=== PATIENT | male | born 1995 | race American Indian/Alaskan Native ===

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

== ENCOUNTER 2020-10-19 05:30 | Emergency (ER) | payer MEDICAID, OTHER ==
--- NOTE | 2020-10-19 05:38 | Event Note ---
ED Screening Note Date of service: 10/19/20 Time: 05:36 ED Screening Note: Patient is a 25-year-old -[place] male with history of marijuana abuse and chronic low back pain who presents to the ED with complaint of persistent intermittent elevated heart rate "for a while now" and that in the last 8 hours he has had multiple episodes of intermittent persistent tachycardia worse when he lays down to sleep. Patient denies fever, chills, shortness of breath, abdominal pain, diaphoresis, chest pain, nausea and vomiting, neck pain, change in vision, syncope, sore throat, fever, chills, cough or headache. This initial assessment/diagnostic orders/clinical plan/treatment(s) is/are subject to change based on patients health status, clinical progression and re- assessment by fellow clinical providers in the ED. Further treatment and workup at subsequent clinical providers discretion. Patient/guardian urged not to elope from the ED as their condition may be serious if not clinically assessed and managed. Initial orders include: CBC, CMP, EKG, troponin, chest x-ray
[2020-10-19 05:55] LABS: Basophils % (Auto) 0.4 % (0.0-1.8); Eosinophils # (Auto) 0.1 K/mm3 (0.0-0.4); Eosinophils % (Auto) 1.9 % (0.0-4.3); Hematocrit 43.7 % (35.5-45.6); Hemoglobin 15.4 gm/dl (11.8-15.2); Lymphocytes # (Auto) 3.1 K/mm3 (1.2-5.4); Lymphocytes % (Auto) 41.1 % (13.4-35.0); Mean Corpuscular HGB Conc 35 % (32-34); Mean Corpuscular Volume 89 fl (84-94); Monocytes # (Auto) 0.5 K/mm3 (0.0-0.8); Monocytes % (Auto) 6.6 % (0.0-7.3); Platelet Count 196 K/mm3 (140-440); Red Cell Distribution Width 13.3 % (13.2-15.2)
--- NOTE | 2020-10-19 06:02 | XRay Report ---
CHEST 1 VIEW 10/19/2020 5:59 AM INDICATION / CLINICAL INFORMATION: Tachycardia. COMPARISON: None available. FINDINGS: SUPPORT DEVICES: None. HEART / MEDIASTINUM: No significant abnormality. LUNGS / PLEURA: No significant pulmonary or pleural abnormality. No pneumothorax. ADDITIONAL FINDINGS: No significant additional findings. IMPRESSION: No acute abnormality. Signer Name: Yong Perkins MD Signed: 10/19/2020 5:57 AM Workstation Name: [id number]
--- NOTE | 2020-10-19 06:08 | Emergency Department Report ---
ED General Adult HPI - General Chief complaint: Arrhythmia/Palpitations Stated complaint: RAPID HEARTBEAT Time Seen by Provider: 10/19/20 06:03 Source: patient Mode of arrival: Ambulatory Limitations: No Limitations - History of Present Illness Initial comments: Patient is a 24-year-old male with no past medical history presents emergency department for evaluation of intermittent palpitations occurring primarily at night for the past several days. Patient suspects it is related to eating too late. Patient denies chest pain, denies shortness of breath, denies fever, denies sore throat. Patient denies substance abuse, denies thyroid abnormality, denies history of blood clots or blood clotting disorder, denies hormone use, denies recent surgery. - Related Data Allergies Allergy/AdvReac Type Severity Reaction Status Date / Time amoxicillin Allergy Swelling Verified 09/30/16 00:36 ED Review of Systems ROS: Stated complaint: RAPID HEARTBEAT Other details as noted in HPI Constitutional: denies: chills, fever Eyes: denies: eye pain, eye discharge, vision change ENT: denies: ear pain, throat pain Respiratory: denies: cough, shortness of breath, wheezing Cardiovascular: denies: chest pain, palpitations Endocrine: no symptoms reported Gastrointestinal: denies: abdominal pain, nausea, diarrhea Genitourinary: denies: urgency, dysuria Musculoskeletal: denies: back pain, joint swelling, arthralgia Skin: denies: rash, lesions Neurological: denies: headache, weakness, paresthesias Psychiatric: denies: anxiety, depression Hematological/Lymphatic: denies: easy bleeding, easy bruising ED Past Medical Hx - Past Medical History Previous Medical History?: No - Surgical History Past Surgical History?: No - Social History Smoking Status: Never Smoker ED Physical Exam - General Limitations: No Limitations General appearance: alert, in no apparent distress - Head Head exam: Present: atraumatic, normocephalic - Eye Eye exam: Present: normal appearance - ENT ENT exam: Present: mucous membranes moist - Neck Neck exam: Present: normal inspection - Respiratory Respiratory exam: Present: normal lung sounds bilaterally. Absent: respiratory distress - Cardiovascular Cardiovascular Exam: Present: regular rate, normal rhythm - GI/Abdominal GI/Abdominal exam: Present: soft, normal bowel sounds - Rectal Rectal exam: Present: deferred - Extremities Exam Extremities exam: Present: normal inspection - Back Exam Back exam: Present: normal inspection - Neurological Exam Neurological exam: Present: alert, oriented X3 - Psychiatric Psychiatric exam: Present: normal affect, normal mood - Skin Skin exam: Present: warm, dry, intact, normal color. Absent: rash ED Course Vital Signs 10/19/20 10/19/20 10/19/20 05:37 06:02 06:03 Temperature 98.1 F Pulse Rate 66 74 Respiratory 16 12 Rate Blood Pressure 163/68 Blood Pressure 123/72 [Left] O2 Sat by Pulse 98 98 Oximetry - Reevaluation(s) Reevaluation #1: 10/19/20 06:56 Discussed results at length with patient who was advised to follow-up with his primary care physician for reevaluation and further testing. ED Medical Decision Making - Lab Data Result diagrams: 10/19/20 05:45 10/19/20 05:45 Labs 10/19/20 10/19/20 10/19/20 05:45 05:45 05:45 WBC 7.5 RBC 4.90 Hgb 15.4 H Hct 43.7 MCV 89 MCH 31 MCHC 35 H RDW 13.3 Plt Count 196 Lymph % (Auto) 41.1 H [place] % (Auto) 6.6 Eos % (Auto) 1.9 Baso % (Auto) 0.4 Lymph # (Auto) 3.1 [place] # (Auto) 0.5 Eos # (Auto) 0.1 Baso # (Auto) 0.0 Seg Neutrophils % 50.0 Seg Neutrophils # 3.8 Sodium 140 Potassium 3.5 L Chloride 104.7 Carbon Dioxide 25 Anion Gap 14 BUN 12 Creatinine 1.1 Estimated GFR > 60 BUN/Creatinine Ratio 11 Glucose 100 Calcium 9.3 Magnesium Total Bilirubin 0.50 AST 28 ALT 17 Alkaline Phosphatase 43 Troponin T < 0.010 Total Protein 6.7 Albumin 4.7 Albumin/Globulin Ratio 2.4 10/19/20 05:45 WBC RBC Hgb Hct MCV MCH MCHC RDW Plt Count Lymph % (Auto) [place] % (Auto) Eos % (Auto) Baso % (Auto) Lymph # (Auto) [place] # (Auto) Eos # (Auto) Baso # (Auto) Seg Neutrophils % Seg Neutrophils # Sodium Potassium Chloride Carbon Dioxide Anion Gap BUN Creatinine Estimated GFR BUN/Creatinine Ratio Glucose Calcium Magnesium 2.10 Total Bilirubin AST ALT Alkaline Phosphatase Troponin T Total Protein Albumin Albumin/Globulin Ratio Vital Signs 10/19/20 10/19/20 10/19/20 05:37 06:02 06:03 Temperature 98.1 F Pulse Rate 66 74 Respiratory 16 12 Rate Blood Pressure 163/68 Blood Pressure 123/72 [Left] O2 Sat by Pulse 98 98 Oximetry - EKG Data -: EKG Interpreted by Me (Sinus rhythm at 66, no ST-T changes, normal QRS) - Radiology Data Radiology results: report reviewed Chest x-ray negative per radiology Critical care attestation.: If time is entered above; I have spent that time in minutes in the direct care of this critically ill patient, excluding procedure time. ED Disposition Clinical Impression: Palpitations Disposition: DC-01 TO HOME OR SELFCARE Is pt being admited?: No Condition: Stable Instructions: Palpitations, [id number] Referrals: PRIMARY CARE, [Primary Care Provider] - 3-5 Days
[2020-10-19 06:15] LABS: Alanine Aminotransferase 17 units/L (7-56); Albumin 4.7 g/dL (3.9-5); BUN/Creatinine Ratio 11; Blood Urea Nitrogen 12 mg/dL (9-20); Calcium 9.3 mg/dL (8.4-10.2); Hemolysis Index 16
[2020-10-19 07:14] VITALS: BP 121/79
== END 2020-10-19 07:14 | disposition home or self-care (01) ==
LOC: ED 05:30
DX: R00.2 Palpitations (principal); Z88.1 Allergy status to other antibiotic agents
CPT/HCPCS: 36415; 71045; 80053; 83735; 84443; 84484; 85025; 93005